=== PATIENT | male | born 1945 | race Caucasian/White ===

== ENCOUNTER 2022-11-11 09:57 | Outpatient (CLI) | payer MEDICARE, SELFPAY ==
--- NOTE | ~2022-11-11 | MR_ITS ---
MRI of the right knee Clinical history: Osteoarthritis Technique: Coronal proton density and proton density-weighted images, sagittal proton-density and T2 fat-sat images, and axial proton-density fat-saturated images were acquired. Findings: Anterior and posterior cruciate ligaments are intact. Medial collateral ligament and the la teral collateral ligament complex are intact. Popliteus tendon is intact. Lateral meniscus is intact, without evidence of tear. There is complex tearing of the anterior horn a nd body of the medial meniscus, which are diminutive. There is a probable associated very large para meniscal cyst measuring 3.2 x 1.3 x 3.3 cm in size, along the medial joint line, deep to the MCL. The re is patchy high-grade chondromalacia of the medial femoral condyle with probable subchondral osteop hyte present. There is patchy moderate to high-grade chondromalacia over the lateral femoral condyle and lateral joint line. There is extensive high-grade chondromalacia the femoral trochlea. There is d iffuse moderate chondromalacia patella. Extensor mechanism is intact. No significant joint effusion or Olvera's cyst. Impression: Complex tearing of the anterior horn and body of the medial meniscus with associated 3.2 x 1.3 x 3.3 cm medial Meniscal cyst, as detailed above. Tricompartmental high-grade chondromalacia, consistent with osteoarthritic change. Reviewed, dictated and finalized at [facility]. Impression: Complex tearing of the anterior horn and body of the medial meniscus with assoc iated 3.2 x 1.3 x 3.3 cm medial Meniscal cyst, as detailed above. Tricompartmental high-grade chondromalacia, consistent with osteoarthritic isbell ge.
[2022-11-11 10:59] LABS: Hemoglobin A1C 7.2 % (<5.7)
== END 2022-11-11 09:58 | disposition home or self-care (01) ==
PROVIDERS: PCP Family Medicine; Visit Provider Orthopaedic Surgery
DX: E11.9 Type 2 diabetes mellitus without complications (principal); M17.0 Bilateral primary osteoarthritis of knee; S83.231A Complex tear of medial meniscus, current injury, right knee, initial encounter; X58.XXXA Exposure to other specified factors, initial encounter
CPT/HCPCS: 36415; 73721; 83036

== ENCOUNTER 2023-02-16 10:03 | Outpatient (CLI) | payer MEDICARE, SELFPAY ==
--- NOTE | ~2023-02-16 | XR_ITS ---
XR chest 2V 02/16/2023 10:42 Indication: Chronic obstructive pulmonary disease Procedure: PA and lateral views of the chest Comparison: No prior studies for comparison. Findings: Heart size normal. No focal air space disease, pulmonary edema, pleural effusion or suspect ed pneumothorax. There are innumerable bilateral calcified granulomas of the lungs. There is atherosc lerosis of the aorta. Impression: 1: No acute cardiopulmonary disease. Reviewed, dictated and finalized at location B. Impression: 1: No acute cardiopulmonary disease.
[2023-02-16 12:11] LABS: Hemoglobin A1C 6.7 % (<5.7)
== END 2023-02-16 10:04 | disposition home or self-care (01) ==
PROVIDERS: PCP Family Medicine; Visit Provider Orthopaedic Surgery
DX: E11.9 Type 2 diabetes mellitus without complications (principal); J44.9 Chronic obstructive pulmonary disease, unspecified
CPT/HCPCS: 36415; 71046; 83036

== ENCOUNTER 2023-02-21 00:17 | Day surgery (SDC) | payer MEDICARE, SELFPAY ==
[2023-02-15 08:29] VITALS: BMI 30.4
--- NOTE | 2023-02-15 08:39 | PC.NURSE ---
Report to the Outpatient Waiting Room, entrance under the green pavilion located off [facility], at time _0930_ on date _[id number]_. Planned Procedure Time: _1130_. Time changes happen often and if your time is changed the preop area will call you the afternoon before. - You and your visitor will be asked to self-screen and do not enter if you have any COVID symptoms. - A mask is optional within the hospital at this time. Patients may have clear liquids (water, carbonated beverages, clear teas, apple juice) until 3 hours prior to surgery with a maximum of 20 ounces. - No food from midnight until time of surgery Take the following medications with a SIP of water the morning of surgery: ____Daughter Ingird says she will give him no pills morning of surgery as they are all in a bubble pack and he won't be able to pick out a single pill. DO NOT STOP ANY OF YOUR OTHER PRESCRIPTION MEDICATIONS PRIOR TO SURGERY ?EXCEPT THE FOLLOWING Medications to discontinue per physician Date to take last dose Please no make-up, nail senegalese, hairspray, perfume, deodorant, or body powder the day of surgery. No jewelry (including any body piercings) or valuables the day of surgery, leave them at home. Please take a shower or bath the night before, or the morning of, surgery with an antibacterial soap. Wear comfortable, loose fitting clothing. - Jewelry must be removed prior to entering the operating room. Rings and piercings that are not removed may be cut off. - The hospital will not accept responsibility for valuables. - Please leave all valuables, including medications, at home the day of surgery. If you are going home after surgery, a licensed courtesy car driver must drive you home. - NO public transportation without another adult if you receive anesthesia. - We recommend that an adult stay with you for 24 hours following discharge. - We also recommend that you do not drive, make important decision, drink alcoholic beverages, or take any drugs that were not prescribed by your health care provider for at least 24 hours after your discharge time. Follow any additional instructions given to you from your surgeon. If you or anyone in your household have experienced Covid symptoms in the past week, please notify your surgeon or the nurse liaison at the phone number below for possible testing. Telephone instructions given to _Kim__and asked if any additional questions and then verbalized understanding. Patient advised to call surgeon office or pre surgery nurse liaison [phone] if any additional questions.
[2023-02-21] VITALS (9 sets, daily range): BP systolic 164–196; BP diastolic 68–100; PULSE 44–51; RESP 12–18; TEMP 36.2–36.4; O2SAT 95–100
--- NOTE | 2023-02-21 06:17 | ECG_ITS ---
Measurements Intervals [place] Rate: 43 P: 65 DE: 154 QRS: 36 QRSD: 149 T: 61 QT: 495 QTc: 422 Interpretive Statements SINUS BRADYCARDIA RIGHT BUNDLE BRANCH BLOCK [120+ ms QRS DURATION, UPRIGHT V1, 40+ ms S IN I/aVL/V4/V5/V6] ABNORMAL ECG NO PREVIOUS ECG AVAILABLE FOR COMPARISON Electronically Signed On 02-21-2023 11:13:10 CDT by Don Solis M.D.
[2023-02-21] MEDS: LACTATED RINGERS 1,000 ML 30 ML IV CONT (10:15)
[2023-02-21 10:25] LABS: Glucose Point of Care 123 mg/dl (65-105)
--- NOTE | 2023-02-21 10:30 | WPDANESEPPF ---
Anes - Initial Pre Proc Eval Procedure: Operation Date: 02/21/23 11:30 Proposed Procedures p Right Knee Arthroscopy with Meniscectomy, Debride Meniscal Cyst - Dipak Gómez MD Date/Time: 02/21/23 10:30 Surgeon: Dipak Gómez MD Pre Op Diagnosis: right knee medial meniscal tear Patient Data Age: 77 Gender: M Height: 1.73 m Weight: 90.9 kg Allergies Allergy/AdvReac Type Severity Reaction Status Date / Time No Known Allergies Allergy Verified 02/16/23 08:39 Home Medications Medication Instructions Recorded Confirmed Type aspirin 81 mg capsule 81 mg PO DAILY 06/02/22 02/16/23 History atorvastatin 40 mg tablet 40 mg PO DAILY 06/02/22 02/16/23 History cilostazol 100 mg tablet 100 mg PO BID 06/02/22 02/16/23 History fosinopril 20 mg tablet 20 mg PO DAILY 06/02/22 02/16/23 History hydrochlorothiazide 50 mg tablet 50 mg PO DAILY 06/02/22 02/16/23 History levothyroxine 137 mcg capsule 137 mcg PO DAILY 06/02/22 02/16/23 History metformin 500 mg tablet 500 mg PO DAILY 06/02/22 02/16/23 History omega 4-qpx-pwf-fish oil 1,000 mg 1 cap PO DAILY 06/02/22 02/16/23 History (120 mg-180 mg) capsule (Fish Oil) Laboratory Tests 02/21/23 10:22 POC Capillary Glucose 123 H mg/dl (65-105) Patient hx anesthesia problems: none Family hx anesthesia problems: none Results Review: All pre-operative results and documents have been reviewed as part of the pre-operative evaluation. FOR[facility]LY [facility] Past Medical History Medical History Cyst of meniscus of right knee Degenerative arthritis of knee, bilateral Diabetes High cholesterol Hypertension Thyroid disorder Surgical History Surgical History History of hernia repair History of left hip replacement 2009 Social History Social History Years smoked: 60 Smoking status: Current every day smoker Tobacco type: cigarettes Additional smoking assessment comments: Down to 7 per day. Alcohol intake: current Drinks per week: 2 Substance use type: does not use Current Housing: Decline to Answer Concerned About Future Housing: Decline to Answer Difficulty Paying Gas/Electric Bills: Decline to Answer Difficulty Paying for Meds: Decline to Answer Currently Unemployed: Decline to Answer Education: Decline to Answer Difficulty w/ Childcare or Family Care: Decline to Answer Living arrangements: with family Occupation/Education: retired Spiritual care concerns: No Anes - Eval Final PreProcedure Day of Procedure 02/21/23 10:30 Patient weight: obese Heart: bradycardia Lungs: decreased breath sounds Airway: Mallampati scale class II Neurological: alert and oriented Last oral intake: >/= 8 hours ASA classification: III Emergent: no Anesthetic plan: proceed Anesthesia type and monitoring: general LMA and standard monitoring Results Review: All pre-operative results and documents have been reviewed as part of the pre-operative evaluation. Informed Consent: The patient's anesthetic plan and its attendant risks and benefits were discussed with the patient/family/POA. Questions were solicited and answers provided to the satisfaction of the patient/family/POA.
[2023-02-21] MEDS: KETOROLAC 15 MG/ML VIAL (*BKC) IV PUSH (10:44)
[2023-02-21] MEDS: ACETAMINOPHEN 500 MG TABLET 1000 MG PO (10:44)
--- NOTE | 2023-02-21 11:03 | WPDHPUPDATE1 ---
History and Physical Update Update Date/Time: 02/21/23 11:03 History and Physical has been reviewed, including an updated exam of the patient. There are NO changes in the patient's condition. Risks, benefits, and alternatives have been discussed and questions answered. Patient agrees to proceed with procedure.
[2023-02-21] MEDS: ceFAZolin 2 GM/D5W 50 ML 2 GM/50 ML BAG IVPB (11:36)
[2023-02-21] MEDS: LIDOCAINE HCL 1% LOCAL INJ 20 ML VIAL INFILTRATE (12:04)
--- NOTE | 2023-02-21 12:37 | W.PM.PROC2 ---
Procedure Note - Detailed Date of Procedure 02/21/23 Pre-op Diagnosis right knee medial meniscal tear with meniscal cyst Post-op Diagnosis Same Procedure Performed Right knee arthroscopy, debridement meniscal cyst Surgeon Dipak Gómez MD Anesthesia General Description of Procedure The patient was identified and proper site identified and he was taken to the operating room, transferred to the OR table placing him supine taking care to pad the torso and extremities. After general anesthetic induction and intubation, a nonsterile tourniquet was placed high on the right thigh. The right lower extremity was positioned, prepped and draped in usual sterile fashion. 10 cc of 1% lidocaine was injected into the subcutaneous tissue in the area of the portals at start of the procedure, and an additional 10 at the end. The portals were established and the arthroscopy was carried out. There is extensive calcification of the meniscal cartilages as well as calcium deposits throughout the synovium. There was extensive grade 2 three and four changes throughout the knee particularly anteriorly. Lateral meniscus was in continuity with reasonable compliance. Medial meniscus had very little compliance but was stable. Anterior posterior cruciate ligaments were in continuity. Was a very large meniscal cyst I was x-rays synovial at along the mid to posterior portion the medial joint line which was palpable. Tourniquet was inflated to 300 millimeters of mercury gino for about is straight the synovium overlying the cyst was opened up using the ArthroCare Wand. The cyst material was extensively debrided with the shaver and then ArthroCare Wand was used for hemostasis. Tourniquet was released. Hemostasis again carried out with the ArthroCare Wand. The knee was flushed with a copious amount of arthroscopic fluid and equipment was removed. Portals were closed with three O nylon suture and a sterile dressing was applied. He tolerated the procedure well, was awakened, extubated and taken to recovery area in stable condition. There were no known intraoperative complications. Estimated blood loss was negligible; he received perioperative antibiotics. Estimated Blood Loss 5 Tourniquet Time 8 Drains No Packing No Pathology None sent Complications No immediate complications Condition Stable Disposition PACU [facility] Billing Surgery - Charge Forward: Surgery Billing ([id number])
[2023-02-21] MEDS: hydrALAZINE HCL 20 MG/ML VIAL 10 MG IV PUSH (13:08)
[2023-02-21 14:46] LABS: Glucose Point of Care 248 mg/dl (65-105)
--- NOTE | 2023-02-21 14:48 | PCPTNOTE ---
Attempted PT evaluation, per RN, pt declined therapy evaluation and decided to discharge home prior to PT evaluation being completed.
--- NOTE | 2023-02-21 14:49 | SUR.PHASEII ---
PHYSICAL THERAPY TO SEE PATIENT, BUT PATIENT REFUSED EDUCATION/WALKER TRAINING
== END 2023-02-21 14:51 | disposition home or self-care (01) ==
PROVIDERS: PCP Family Medicine; Visit Provider Orthopaedic Surgery
PROC: (CPT 29870; principal; 2023-02-21 11:30)
DX: M23.006 Cystic meniscus, unspecified meniscus, right knee (principal); R94.31 Abnormal electrocardiogram [ECG] [EKG]; E11.9 Type 2 diabetes mellitus without complications; E78.00 Pure hypercholesterolemia, unspecified; I10 Essential (primary) hypertension; E07.9 Disorder of thyroid, unspecified; F17.210 Nicotine dependence, cigarettes, uncomplicated; Z79.82 Long term (current) use of aspirin; Z79.84 Long term (current) use of oral hypoglycemic drugs; E66.9 Obesity, unspecified; Z68.30 Body mass index [BMI] 30.0-30.9, adult
CPT/HCPCS: 29877; 82948; 93005; A9270; J0360; J0690; J1100; J1885; J2405; J2704; J3010; J7120

== ENCOUNTER 2023-07-29 08:18 | Outpatient (CLI) | payer MEDICARE, SELFPAY ==
--- NOTE | ~2023-07-29 | XR_ITS ---
EXAMINATION: XR lg joint inject/asp w image DATE: 07/29/2023 09:19 INDICATION: Right hip pain. TECHNIQUE: A time-out was performed to verify the patient's name, date of , and procedure to b e performed. The procedure including the risks, benefits, and alternatives was discussed with the pat ient. Risks discussed included bleeding and infection. The patient understood the risks and agreed to proceed. The skin overlying the right hip joint was prepped and draped in usual sterile fashion. A nesthetic was administered with 1% lidocaine subcutaneously. A 22 G needle was advanced under fluoro scopic guidance into the joint. Subsequently, injectate consisting of 2 mL 0.5% bupivacaine and 1 mL 80 mg/mL Depo-Medrol was instilled. The needle was removed and the entry site was cleaned and dress ed. There were no immediate complications. Fluoroscopy exposure time was 0.1 minutes. The total numb er of images was 1. FINDINGS: Real-time fluoroscopy demonstrates the needle in the right hip joint. Patient's pain prior to procedure:8/10. Patient's pain following the procedure: /10. IMPRESSION: 1. Fluoroscopy guided right hip joint injection of local anesthetic and steroid with decrease in the patient's presenting pain. Reviewed, dictated and finalized at location A.
== END 2023-07-29 08:19 | disposition home or self-care (01) ==
PROVIDERS: PCP Family Medicine; Visit Provider Orthopaedic Surgery
DX: M25.551 Pain in right hip (principal)
CPT/HCPCS: 20610; 77002; J1010

== ENCOUNTER 2023-09-13 12:55 | Outpatient (CLI) | payer MEDICARE, SELFPAY ==
--- NOTE | ~2023-09-13 | MR_ITS ---
EXAMINATION: MR lumbar spine wo con DATE: 09/13/2023 13:32 INDICATION: Low back pain. TECHNIQUE: Magnetic resonance imaging (MRI) of the lumbar spine was performed without intravenous con trast. Sequences included sagittal T2-weighted FSE, sagittal T2-weighted FS FSE, sagittal T1-weighted FSE, and axial T2-weighted FSE. COMPARISON: None FINDINGS: There is 13 degrees dextroscoliosis of lumbar spine. There is 3 mm anterolisthesis of L4 on L5. Vertebral body heights are normal. There is moderately decreased disc height at T11-T12, severel y decreased disc height at L1-L2 and L2-L3, moderately decreased disc height at L3-L4 and L4-L5, and mildly decreased disc height at L5-S1. The distal spinal cord signal intensity is normal. The conus m edullaris is at T12-L1. The following disc levels are specifically discussed: L1-L2: The disc is bulging and has an annular fissure. There is severe right and mild left facet join t osteoarthritis. There is moderate right and mild left neural foraminal stenosis. There is mild cent ral canal stenosis. L2-L3: The disc is bulging and has an annular fissure. There is severe bilateral facet joint osteoart hritis. There is mild right and moderate left neural foraminal stenosis. There is mild central canal stenosis. L3-L4: The disc is bulging and has an annular fissure. There is severe bilateral facet joint osteoart hritis. There is moderate bilateral neural foraminal stenosis. There is mild central canal stenosis. L4-L5: The disc is bulging and has an annular fissure. There is severe bilateral facet joint osteoart hritis. There is moderate bilateral neural foraminal stenosis. There is moderate central canal stenos is. L5-S1: The disc is bulging and has an annular fissure. There is severe right and moderate left facet joint osteoarthritis. There is moderate bilateral neural foraminal stenosis. There is mild central ca nal stenosis. IMPRESSION: 1. Severe lumbar spondylosis. 2. Lumbar dextroscoliosis. Reviewed, dictated and finalized at location A.
== END 2023-09-13 12:56 ==
PROVIDERS: PCP Family Medicine; Visit Provider Orthopaedic Surgery
DX: M47.896 Other spondylosis, lumbar region (principal)
CPT/HCPCS: 72148